=== PATIENT | female | born 1955 | race Caucasian/White ===

== ENCOUNTER 2018-03-19 10:58 | Outpatient (CLI) | payer MEDICAID ==
[~2018-03-19 10:58] MED LIST: COU5T PO; GABA-532 PO; LANTUS SUBCUT
== END 2018-03-19 23:59 ==
LOC: LAB 10:58
PROVIDERS: ATTEND Nurse Practitioner Family
DX: E11.9 Type 2 diabetes mellitus without complications (principal); Z79.4 Long term (current) use of insulin; W19.XXXA Unspecified fall, initial encounter; Y93.89 Activity, other specified; Y92.89 Other specified places as the place of occurrence of the external cause; Y99.8 Other external cause status
CPT/HCPCS: 71046; 71100

== ENCOUNTER 2018-06-03 13:08 | Outpatient (CLI) | payer MEDICAID | END 2018-06-03 23:59 | disposition home or self-care (01) | LOC: RAD 13:08 | PROVIDERS: ATTEND Nurse Practitioner Family | DX: M25.562 Pain in left knee (principal); M25.462 Effusion, left knee | CPT/HCPCS: 73564 ==

== ENCOUNTER 2018-06-28 09:27 | Day surgery (SDC) | payer MEDICAID ==
[~2018-06-28] VITALS: Ht 170.2 cm; Wt 81.8 kg
[2018-06-28 09:40] VITALS: BP 133/61
[2018-06-28] MEDS ORDERED: fentaNYL/PF 50MCG/1 ML 2ML syringe ONE ×2 (10:05)
[2018-06-28] MEDS ORDERED: MIDAZolam 5mg/5ml vial ONE (10:06)
[2018-06-28 12:05] VITALS: BP 116/58
[2018-06-28 12:15] VITALS: BP 117/56
[2018-06-28 12:25] VITALS: BP 127/59
[2018-06-28 12:35] VITALS: BP 132/55
== END 2018-06-28 12:56 | disposition home or self-care (01) ==
LOC: GI LAB 09:27
PROVIDERS: ATTEND Internal Medicine Gastroenterology
DX: Z09 Encounter for follow-up examination after completed treatment for conditions other than malignant neoplasm (principal); K63.5 Polyp of colon; D12.3 Benign neoplasm of transverse colon; K64.8 Other hemorrhoids; K52.9 Noninfective gastroenteritis and colitis, unspecified; E11.40 Type 2 diabetes mellitus with diabetic neuropathy, unspecified; Z86.010 Personal history of colon polyps; Z98.890 Other specified postprocedural states; Z86.19 Personal history of other infectious and parasitic diseases; Z79.4 Long term (current) use of insulin; Z79.899 Other long term (current) drug therapy
CPT/HCPCS: 45380; 45385; J2250; J3010; J7030; A4620; G0500

== ENCOUNTER 2019-05-10 15:42 | Outpatient (CLI) | payer MEDICAID | END 2019-05-10 23:59 | disposition home or self-care (01) | LOC: RAD 15:42 | PROVIDERS: ATTEND Nurse Practitioner Family | DX: R04.2 Hemoptysis (principal); I51.7 Cardiomegaly; M41.84 Other forms of scoliosis, thoracic region; F17.200 Nicotine dependence, unspecified, uncomplicated; E11.9 Type 2 diabetes mellitus without complications | CPT/HCPCS: 71046 ==

== ENCOUNTER 2019-07-21 19:58 | Emergency (ER) | payer MEDICAID ==
[~2019-07-21] VITALS: Ht 170.2 cm; Wt 77.3 kg
--- NOTE | 2019-07-21 20:31 | NUR ---
bg [id number]
[2019-07-21] MEDS ORDERED: normal saline 1000ml 1,000 ML IVB ONE (20:36)
[2019-07-21] MEDS ORDERED: ondansetron/PF 4mg/2ml inj IV ONE ×2 (20:40→22:35)
[2019-07-21 20:44] LABS: BASOPHILS % (AUTO) 0.1 % (0-1); EOSINOPHILS % (AUTO) 0.1 % (0-6); HEMATOCRIT 38.4 % (35.0-45.0); HEMOGLOBIN 13.1 g/dl (12.0-16.0); LYMPHOCYTES # (AUTO) 0.2 X10'3 (1.1-4.8); LYMPHOCYTES % (AUTO) 2.9 % (21-51); MEAN CORPUSCULAR HEMOGLOBIN 31.6 PG (27.0-31.0); MEAN CORPUSCULAR HGB CONC 34.2 g/dL (33.0-36.5); MEAN CORPUSCULAR VOLUME 92.5 FL (78-98); MEAN PLATELET VOLUME 9.5 FL (7.4-10.4); MONOCYTES # (AUTO) 0.4 X10'3 (0-0.9); NEUTROPHILS % (AUTO) 90.9 % (42-75); RED BLOOD COUNT 4.15 X10'6 (4.20-5.60); RED CELL DISTRIBUTION WIDTH 14.5 % (11.5-14.5); WHITE BLOOD COUNT 6.6 X10'3 (4.5-11.0)
[2019-07-21 20:57] LABS: ALANINE AMINOTRANSFERASE 57 U/L (12-78); ALKALINE PHOSPHATASE 58 IU/L (46-116); ANION GAP 11 (8-16); ASPARTATE AMINO TRANSFERASE 87 U/L (10-37); BILIRUBIN,TOTAL 5.1 MG/DL (0.1-1.0); BLOOD UREA NITROGEN 27 MG/DL (7-18); CALCIUM 8.3 MG/DL (8.5-10.1); CHLORIDE 102 MMOL/L (99-107); CREATININE 1.08 MG/DL (0.40-0.90); GLUCOSE 238 MG/DL (70-104); POTASSIUM 3.6 MMOL/L (3.5-5.1); SODIUM 136 MMOL/L (135-145); TOTAL CARBON DIOXIDE 22.7 MMOL/L (24-32); eGFR 51 ML/MIN
[2019-07-21 20:59] LABS: ALBUMIN/GLOBULIN RATIO 0.8 (1.1-1.5); TOTAL PROTEIN 6.7 G/DL (6.4-8.2)
[2019-07-21 21:10] LABS: PLATELET COUNT 32 X10'3 (140-440)
[2019-07-21] MEDS ORDERED: normal saline 1000ML IV soln IVB ONE (22:35)
[2019-07-21] MEDS ORDERED: morphine 4 MG/ML inj SYRINge IV ONE (22:35)
[2019-07-21 23:01] LABS: COLOR,URINE YELLOW (Yellow); GLUCOSE, URINE 250 mg/dl (Neg); KETONES,URINE TRACE mg/dl (Neg); LEUKOCYTE ESTERASE ,URINE NEGATIVE (Neg); NITRITES, URINE NEGATIVE (Neg); OCCULT BLOOD,URINE LARGE (Neg); PROTEIN,URINE 100 mg/dl (Neg); UROBILINOGEN,URINE 0.2 E.U/dL (0.2-1.0)
[2019-07-21 23:02] LABS: CLARITY,URINE SLIGHTLY CLOUDY (Clear); UA COLLECTION TYPE CLN CATCH MIDSTREAM
[2019-07-21 23:03] LABS: URINE HCG NEGATIVE (NEG)
[2019-07-21 23:09] LABS: BACTERIA,URINE 1+ /HPF (Neg); MUCUS STRANDS FEW /LPF (Neg); SQUAMOUS EPITHELIAL CELL,UR FEW /LPF (FEW); WBC,URINE 0-4 /HPF (0-4)
[2019-07-21 23:10] LABS: AMORPHOUS PHOSPHATES 2+
[2019-07-22] MEDS ORDERED: ONDA4TAB6 PO (00:14)
[2019-07-22 00:25] VITALS: BP 112/53
[2019-07-23] MEDS ORDERED: PROM25SU46 RC (20:50)
[2019-07-23] MEDS ORDERED: PANT-47 PO (20:50)
== END 2019-07-22 00:34 | disposition home or self-care (01) ==
LOC: ER 19:59
DX: R11.2 Nausea with vomiting, unspecified (principal); R19.7 Diarrhea, unspecified; K74.60 Unspecified cirrhosis of liver; D47.3 Essential (hemorrhagic) thrombocythemia; E11.65 Type 2 diabetes mellitus with hyperglycemia; E86.0 Dehydration; M19.90 Unspecified osteoarthritis, unspecified site; Z86.19 Personal history of other infectious and parasitic diseases; Z95.1 Presence of aortocoronary bypass graft; Z98.890 Other specified postprocedural states; Z87.891 Personal history of nicotine dependence; Z88.5 Allergy status to narcotic agent; Z88.6 Allergy status to analgesic agent; Z79.2 Long term (current) use of antibiotics; Z79.01 Long term (current) use of anticoagulants; Z79.899 Other long term (current) drug therapy
CPT/HCPCS: 36415; 71045; 80053; 81001; 81025; 82948; 85025; 85610; 96361; 96374; 96375; 96376; 99284; J2270; J2405; J7030

== ENCOUNTER 2019-07-23 17:34 | Emergency (ER) | payer MEDICAID ==
[~2019-07-23] VITALS: Ht 170.2 cm; Wt 77.3 kg
[~2019-07-23 17:34] MED LIST changes: +ONDA4TAB6 PO
[2019-07-23] MEDS ORDERED: pantoprazole 40 MG vial IV ONE (19:10)
[2019-07-23] MEDS ORDERED: famotidine 20mg tablet PO ONE (19:10)
[2019-07-23] MEDS ORDERED: normal saline 1000ml 1,000 ML IV ONE ×2 (19:10→19:30)
[2019-07-23] MEDS ORDERED: ondansetron/PF 4mg/2ml inj IV ONE (19:10)
[2019-07-23 19:11] LABS: BASOPHILS % (AUTO) 0.1 % (0-1); EOSINOPHILS # (AUTO) 0.1 X10'3 (0-0.9); EOSINOPHILS % (AUTO) 1.1 % (0-6); HEMATOCRIT 41.4 % (35.0-45.0); LYMPHOCYTES # (AUTO) 0.1 X10'3 (1.1-4.8); MEAN CORPUSCULAR HEMOGLOBIN 31.5 PG (27.0-31.0); MEAN CORPUSCULAR HGB CONC 33.7 g/dL (33.0-36.5); MEAN CORPUSCULAR VOLUME 93.4 FL (78-98); MEAN PLATELET VOLUME 11.1 FL (7.4-10.4); MONOCYTES # (AUTO) 0.5 X10'3 (0-0.9); MONOCYTES % (AUTO) 6.7 % (2-12); NEUTROPHILS # (AUTO) 6.9 X10'3 (1.8-7.7); NEUTROPHILS % (AUTO) 90.1 % (42-75); RED BLOOD COUNT 4.44 X10'6 (4.20-5.60); RED CELL DISTRIBUTION WIDTH 14.6 % (11.5-14.5); WHITE BLOOD COUNT 7.6 X10'3 (4.5-11.0)
[2019-07-23 19:22] LABS: ALANINE AMINOTRANSFERASE 53 U/L (12-78); ALBUMIN 2.7 G/DL (3.4-5.0); ALKALINE PHOSPHATASE 69 IU/L (46-116); ANION GAP 10 (8-16); ASPARTATE AMINO TRANSFERASE 62 U/L (10-37); BILIRUBIN,TOTAL 5.1 MG/DL (0.1-1.0); BLOOD UREA NITROGEN 23 MG/DL (7-18); BUN/CREATININE RATIO 20.4 (6.6-38.0); CALCIUM 8.1 MG/DL (8.5-10.1); CHLORIDE 97 MMOL/L (99-107); CREATININE 1.13 MG/DL (0.40-0.90); GLUCOSE 200 MG/DL (70-104); SODIUM 131 MMOL/L (135-145); TOTAL CARBON DIOXIDE 23.8 MMOL/L (24-32); eGFR 49 ML/MIN
[2019-07-23 19:23] LABS: ALBUMIN/GLOBULIN RATIO 0.7 (1.1-1.5); TOTAL PROTEIN 6.4 G/DL (6.4-8.2)
[2019-07-23 19:25] LABS: URINE HCG NEGATIVE (NEG)
[2019-07-23 19:26] LABS: LIPASE 495 U/L (73-393); TROPONIN I < 0.04 NG/ML (0.0-0.05)
[2019-07-23 19:29] LABS: CLARITY,URINE SLIGHTLY CLOUDY (Clear); COLOR,URINE AMBER (Yellow); GLUCOSE, URINE NEGATIVE (Neg); KETONES,URINE 15 mg/dl (Neg); LEUKOCYTE ESTERASE ,URINE TRACE (Neg); NITRITES, URINE NEGATIVE (Neg); OCCULT BLOOD,URINE LARGE (Neg); PROTEIN,URINE 100 mg/dl (Neg)
[2019-07-23 19:47] LABS: PLATELET COUNT 35 X10'3 (140-440)
[2019-07-23] MEDS ORDERED: ketorolac tromethamine 15mg/ml inj. IV ONE (19:50)
[2019-07-23 19:52] LABS: UA COLLECTION TYPE CLN CATCH MIDSTREAM
--- NOTE | 2019-07-23 20:11 | NUR ---
SPOKE WITH DR CHANCE RE: PLTS AND TORODOL AND HE FEELS IT IS OK TO USE THE TORODOL R/T SHORT HALF LIFE.
[2019-07-23] MEDS ORDERED: proCHLORperazine 10 MG/2 ml inj IV ONE (20:15)
[2019-07-23 20:17] LABS: BACTERIA,URINE FEW /HPF (Neg); RBC,URINE TNTC /HPF (0-2); WBC,URINE 0-4 /HPF (0-4)
[2019-07-23 20:18] LABS: MUCUS STRANDS MANY /LPF (Neg); SQUAMOUS EPITHELIAL CELL,UR FEW /LPF (FEW); TRANSITIONAL EPI CELLS,URINE MODERATE /HPF
[2019-07-23] MEDS ORDERED: warfarin 5mg tablet PO ONE (20:40)
[2019-07-23] MEDS ORDERED: PANT-47 PO (20:50)
[2019-07-23] MEDS ORDERED: PROM25SU46 RC (20:50)
[2019-07-23] MEDS ORDERED: gabapentin 400mg capsule PO ONE (20:55)
[2019-07-23 21:18] VITALS: BP 121/64
[2019-07-23 21:52] LABS: LARGE PLATELETS FEW; PLATELET ESTIMATE DECREASED; TOTAL CELLS COUNTED 100; TOXIC GRANULATION 2+; TOXIC VACUOLATION 1+
== END 2019-07-23 21:21 | disposition home or self-care (01) ==
LOC: ER 17:34
DX: R11.2 Nausea with vomiting, unspecified (principal); E11.9 Type 2 diabetes mellitus without complications; M19.90 Unspecified osteoarthritis, unspecified site; Z95.1 Presence of aortocoronary bypass graft; Z98.890 Other specified postprocedural states; Z88.5 Allergy status to narcotic agent; Z88.6 Allergy status to analgesic agent; Z79.01 Long term (current) use of anticoagulants; Z79.4 Long term (current) use of insulin
CPT/HCPCS: 36415; 80053; 81001; 81025; 83690; 84484; 85025; 85610; 87088; 96361; 96374; 96375; 99284; C9113; J0780; J1885; J2405; J7030